=== PATIENT | male | born 1985 | race African-American/Black ===

== ENCOUNTER → 2017-05-30 | Outpatient (CLI) | payer MEDICAID ==
[~2017-05-30] MED LIST: HYDR-3240 PO; IBUP200T48 PO; MAGIC MOUTHWASH; PENI500T PO; SERT100T PO
== END | disposition home or self-care (01) ==
LOC: CLISVCS 12:14
PROVIDERS: ATTEND Radiology Diagnostic Radiology
DX: Z51.81 Encounter for therapeutic drug level monitoring (principal); F20.9 Schizophrenia, unspecified; F32.9 Major depressive disorder, single episode, unspecified
CPT/HCPCS: 93005

== ENCOUNTER 2018-10-18 07:49 | Emergency (ER) | payer MEDICAID ==
[~2018-10-18] VITALS: Ht 185.4 cm; Wt 138.9 kg
[~2018-10-18 07:49] MED LIST changes: -IBUP200T48 PO; +IBUP200T49 PO
[2018-10-18] MEDS ORDERED: OXYcodone/APAP 5/325MG TABLET PO ONE (08:30)
[2018-10-18] MEDS ORDERED: KETOROLAC 30 MG/1 ML IM ONE (08:30)
[2018-10-18] MEDS ORDERED: DIAZEPAM 5 MG TABLET PO ONE (08:30)
[2018-10-18] MEDS ORDERED: OXYcodone/APAP 5/325MG TABLET ONE (08:32)
[2018-10-18] MEDS ORDERED: KETOROLAC 30 MG/1 ML ONE (08:32)
[2018-10-18] MEDS ORDERED: DIAZEPAM 5 MG TABLET ONE (08:33)
--- NOTE | 2018-10-18 08:47 | NUR ---
PATIENT SAFE IN BED, CALL LIGHT IN REACH, MOTHER AT BEDSIDE, MEDICATED PER MAR, NADN, CMS INTACT, FALL RISK DISCUSSED R/T MEDS, NO NEEDS AT THIS TIME.
--- NOTE | 2018-10-18 09:22 | NUR ---
patient safe in bed, reports minimal pain relief yet, no additional needs.
[2018-10-18 10:25] VITALS: BP 135/90
== END 2018-10-18 10:27 | disposition home or self-care (01) ==
LOC: ED 10:18
DX: S39.012A Strain of muscle, fascia and tendon of lower back, initial encounter (principal); G89.11 Acute pain due to trauma; F32.9 Major depressive disorder, single episode, unspecified; X58.XXXA Exposure to other specified factors, initial encounter; Y93.89 Activity, other specified; Y92.89 Other specified places as the place of occurrence of the external cause; Y99.8 Other external cause status
CPT/HCPCS: 96372; 99283; J1885

== ENCOUNTER 2020-10-10 20:35 | Emergency (ER) | payer MEDICAID ==
[~2020-10-10] VITALS: Ht 185.4 cm; Wt 164.4 kg
[~2020-10-10 20:35] MED LIST changes: +HYDR-1067 PO; -HYDR-3240 PO
--- NOTE | 2020-10-10 21:01 | NUR ---
NAD, dental pain.
[2020-10-10] MEDS ORDERED: HYDROcodone/APAP 5/325 TABLET ONE (21:09)
[2020-10-10 21:12] VITALS: BP 164/95
[2020-10-10] MEDS ORDERED: HYDROcodone/APAP 5/325 TABLET PO ONE (21:30)
== END 2020-10-10 21:22 | disposition home or self-care (01) ==
LOC: ED 21:00
DX: K02.9 Dental caries, unspecified (principal); R51.9 Headache, unspecified; Z72.9 Problem related to lifestyle, unspecified
CPT/HCPCS: 99283

== ENCOUNTER 2020-10-18 15:19 | Emergency (ER) | payer MEDICAID ==
[~2020-10-18] VITALS: Ht 185.4 cm; Wt 162.1 kg
[2020-10-18] MEDS ORDERED: OXYcodone/APAP 5/325MG TABLET ONE (15:51)
--- NOTE | 2020-10-18 15:53 | NUR ---
TASK RN: PT MEDICATED FOR 10/10 PAIN ORDERED.
[2020-10-18] MEDS ORDERED: OXYcodone/APAP 5/325MG TABLET PO ONE (16:00)
[2020-10-18 16:30] VITALS: BP 105/74
== END 2020-10-18 16:32 | disposition home or self-care (01) ==
LOC: ED 15:47
DX: K02.9 Dental caries, unspecified (principal); K08.89 Other specified disorders of teeth and supporting structures
CPT/HCPCS: 99283

== ENCOUNTER 2020-12-27 10:48 | Emergency (ER) | payer MEDICAID ==
[~2020-12-27] VITALS: Ht 185.4 cm; Wt 153.5 kg
[~2020-12-27 10:48] MED LIST changes: -HYDR-1067 PO; +HYDR-2214 PO
--- NOTE | 2020-12-27 11:11 | NUR ---
PT C/O OF DENTAL PAIN AND HEADACHES X 2 DAYS. STATES HE THINKS ITS A ABSCESS OR CAVITY AND THAT THE PAIN IS SHARP AND RADIATES DOWN TO JAW AND NECK WHICH IS CAUSING STIFFNESS. DENIES BLEEDING OR DRAINAGE.
--- NOTE | 2020-12-27 11:18 | NUR ---
PT DENIES SOB AND CP
[2020-12-27] MEDS ORDERED: HYDROcodone/APAP 5/325 TABLET PO ONE (11:30)
[2020-12-27] MEDS ORDERED: HYDROcodone/APAP 5/325 TABLET ONE (11:33)
[2020-12-27 11:53] VITALS: BP 163/93
== END 2020-12-27 11:56 | disposition home or self-care (01) ==
LOC: ED 11:45
DX: K08.89 Other specified disorders of teeth and supporting structures (principal)
CPT/HCPCS: 99283

== ENCOUNTER 2021-01-30 01:15 | Emergency (ER) | payer MEDICAID ==
[~2021-01-30] VITALS: Ht 185.4 cm; Wt 157.8 kg
--- NOTE | 2021-01-30 01:25 | NUR ---
PA AT BEDSIDE FOR EVAL AND POC
[2021-01-30] MEDS ORDERED: ONDANSETRON ODT 4 MG PO ONE (01:30)
[2021-01-30] MEDS ORDERED: HYDROcodone/APAP 5/325 TABLET PO ONE (01:30)
[2021-01-30] MEDS ORDERED: ONDANSETRON ODT 4 MG ONE (01:32)
[2021-01-30] MEDS ORDERED: HYDROcodone/APAP 5/325 TABLET ONE (01:33)
[2021-01-30 01:58] VITALS: BP 143/96
== END 2021-01-30 02:00 | disposition home or self-care (01) ==
LOC: ED 01:45
DX: K08.89 Other specified disorders of teeth and supporting structures (principal); E66.01 Morbid (severe) obesity due to excess calories; Z88.1 Allergy status to other antibiotic agents; Z68.42 Body mass index [BMI] 45.0-49.9, adult
CPT/HCPCS: 99283; Q0162